=== PATIENT | male | born 2000 | race Caucasian/White ===

== ENCOUNTER 2023-08-08 14:04 | Emergency (ER) | payer SELFPAY ==
[~2023-08-08] VITALS: Ht 170.2 cm; Wt 60.0 kg
[2023-08-08 14:18] VITALS: BP 130/73; PULSE 68; RESP 18; TEMP 98.5; O2SAT 99
[2023-08-08] MEDS ORDERED: BO1 TP (15:08)
[2023-08-08] MEDS: BACITRACIN ZINC OINT UDPKT TOP ONE (15:15)
[2023-08-08] MEDS: TETANUS, DIPHTHERIA, PERTUSSIS VAC/PF 0.5ML (>10YR OLD) IM ONE (15:15)
[2023-08-08] MEDS: LIDOCAINE HCL/PF 1% 10 MG/ML 5ML VIAL INFIL ONE (15:15)
== END 2023-08-08 16:00 | disposition home or self-care (01) ==
LOC: ER 14:19
DX: S41.112A Laceration without foreign body of left upper arm, initial encounter (principal); X58.XXXA Exposure to other specified factors, initial encounter; Y93.89 Activity, other specified; Y92.89 Other specified places as the place of occurrence of the external cause; Y99.8 Other external cause status
CPT/HCPCS: 90715; 12002; 90471; 99283; J3490; Z7610 ×2